=== PATIENT | female | born 1970 | race Caucasian/White ===

== ENCOUNTER 2016-10-08 11:22 | Emergency (ER) | payer BC ==
--- NOTE | 2016-10-08 13:53 | ED NURSING NOTES ---
Clinical Report - Nurses [facility] [address] [place] [address] 10/08/2016 11:26 Patient: ALBERTO RTEJO TRIAGE Triage time 11:54. Acuity: LEVEL 3. Chief Complaint: NAUSEA and VOMITING. --12:01 Lula Campbell R.N. 11:54 10/08/16. BP: 134/87. HR: 90. RR: 16. O2 saturation: 99%. Temp: 98.2 F. Pain level now: 12/06. --12:01 Lula Campbell R.N. Weight: 92.5 kg stated. Height/Length: 67 inches Per Patient. BMI: 32. --12:00 Lula Campbell R.N. Medications Sertraline HCl Oral. --11:57 Lula Campbell R.N. Allergies Codeine. --11:58 Lula Campbell R.N. History Arrived by private vehicle. Historian: patient. Accompanied by family. Primary physician ([facility] ( Pt went to [facility] yesterday and was diagnosed with strep throat. Given Percocet and PCN which she took when she got home around 4pm and has been throwing up ever since.). This started yesterday. She has had nausea and vomiting. Last oral intake by patient was yesterday. Treatment RENTAL CLERK TOOL AND EQUIPMENT: Recently seen in a clinic; seen for different problems; treatment- pain medication and antibiotic. PAST MEDICAL HX: Gallstones. Immunizations: up-to-date. The patient has had a hysterectomy. SURGERY HX: Had hysterectomy. SOCIAL HX: Never smoker. Occasional alcohol use. No drug use. No infectious disease exposure. SELF HARM ASSESSMENT: A self harm assessment was performed. The patient answered "no" to the question "Do you have thoughts of harming or killing yourself?". FALL RISK ASSESSMENT: Fall risk assessment completed. No fall risk identified. ABUSE ASSESSMENT: Abuse assessment: ("Yes") The patient was asked "Do you feel safe in your home?". --12:01 Lula Campbell R.N. ADDITIONAL SURGERIES: . Gallbladder Surgery. Kidney removal. Shoulder Surgery. --11:58 Lula Campbell R.N. Interventions ID band on patient. --12:01 Lula Campbell R.N. PHYSICAL ASSESSMENT Ambulatory to room. GENERAL / NEURO / PSYCH: Alert. Oriented X 4. Appears in pain and in distress. RESPIRATORY: Respirations not labored. GI / : The patient has had nausea. Abdomen soft. SKIN: Skin is warm and dry. --12:01 Lula Campbell R.N. NURSING PROGRESS NOTES Reassurance given. Patient ID band checked: patient confirmed. Instructions provided to collect clean catch urine and patient verbalized understanding. Clean catch urine collected with return of norma-colored urine; sample sent to lab. Specimen labeled in the presence of the patient. Patient identifiers checked. Call light placed in reach. Bed placed in lowest position. Brakes of bed on. Patient ready for evaluation- ED physician notified. --12:02 Lula Campbell R.N. 12:19 10/08/2016 Site #1 started via IV in the right antecubital space with an 18g angiocath, with aseptic technique and good blood return; one attempt. Blood drawn: rainbow set. Labeled in the presence of the patient and sent to the lab. Saline lock flushed with 10 mL saline. --12:19 Lula Campbell R.N. 13:39 10/08/2016 Started bag #1 1000 mL IV Fluids IV NS (Saline); bolus of 999 mL over 1 hour(s) via site #1 via IV pump. Allergies verified and confirmed 5 rights. IV patency established. IV site checked: no pain, redness, or swelling. IV flushed thoroughly pre- and post-medication administration. --13:39 uLla Campbell R.N. DISPOSITION / DISCHARGE 15:07 10/08/2016 Site #1 removed upon discharge. Catheter intact. Bandage applied. --15:17 Yossi Damon R.N. 15:17 10/08/16. Departure time: 1514. Condition at departure: improved and stable. No learning barriers present. Discharge instructions provided and reviewed with the patient and spouse. Reviewed medication(s) side effects, precautions, dosing and course information. Prescription(s) given to the patient. Patient verbalized understanding. Written instructions provided in Urdu. The patient was discharged by the physician. She was discharged home and accompanied by spouse. She left the Emergency Department ambulatory and via private vehicle. Spouse driving. --15:17 Yossi Damon R.N. 15:14 10/08/16. BP: 115/73. HR: 84. RR: 16. O2 saturation: 95% on room air. Temp: 98.2 F (oral). Pain level now 10/05. --15:17 Yossi Damon R.N. Locked/Released at 10/08/2016 19:36 by Lula Campbell R.N.
--- NOTE | 2016-10-08 13:53 | ED NURSING NOTES ---
Clinical Report - Nurses [facility] [address] [place] [address] 10/08/2016 11:26 Patient: ALBERTO TREJO TRIAGE Triage time 11:54. Acuity: LEVEL 3. Chief Complaint: NAUSEA and VOMITING. --12:01 Lula Campbell R.N. 11:54 10/08/16. BP: 134/87. HR: 90. RR: 16. O2 saturation: 99%. Temp: 98.2 F. Pain level now: 12/06. --12:01 Lula Campbell R.N. Weight: 92.5 kg stated. Height/Length: 67 inches Per Patient. BMI: 32. --12:00 Lula Campbell R.N. Medications Sertraline HCl Oral. --11:57 Lula Campbell R.N. Allergies Codeine. --11:58 Lula Campbell R.N. History Arrived by private vehicle. Historian: patient. Accompanied by family. Primary physician ([facility]). ( Pt went to [facility] yesterday and was diagnosed with strep throat. Given Percocet and PCN which she took when she got home around 4pm and has been throwing up ever since.). This started yesterday. She has had nausea and vomiting. Last oral intake by patient was yesterday. 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 PAST MEDICAL HX: Gallstones. Immunizations: up-to-date. The patient has had a hysterectomy. SURGERY HX: Had hysterectomy. SOCIAL HX: Never smoker. Occasional alcohol use. No drug use. No infectious disease exposure. SELF HARM ASSESSMENT: A self harm assessment was performed. The patient answered "no" to the question "Do you have thoughts of harming or killing yourself?". FALL RISK ASSESSMENT: Fall risk assessment completed. No fall risk identified. ABUSE ASSESSMENT: Abuse assessment: ("Yes") The patient was asked "Do you feel safe in your home?". --12:01 Lula Campbell R.N. ADDITIONAL SURGERIES: . Gallbladder Surgery. Kidney removal. Shoulder Surgery. --11:58 Lula Campbell R.N. Interventions ID band on patient. --12:01 Lula Campbell R.N. PHYSICAL ASSESSMENT Ambulatory to room. GENERAL / NEURO / PSYCH: Alert. Oriented X 4. Appears in pain and in distress. RESPIRATORY: Respirations not labored. GI / : The patient has had nausea. Abdomen soft. SKIN: Skin is warm and dry. --12:01 Lula Campbell R.N. NURSING PROGRESS NOTES Reassurance given. Patient ID band checked: patient confirmed. Instructions provided to collect clean catch urine and patient verbalized understanding. Clean catch urine collected with return of norma-colored urine; sample sent to lab. Specimen labeled in the presence of the patient. Patient identifiers checked. Call light placed in reach. Bed placed in lowest position. Brakes of bed on. Patient ready for evaluation- ED physician notified. --12:02 Lula Campbell R.N. 12:19 10/08/2016 Site #1 started via IV in the right antecubital space with an 18g angiocath, with aseptic technique and good blood return; one attempt. Blood drawn: rainbow set. Labeled in the presence of the patient and sent to the lab. Saline lock flushed with 10 mL saline. --12:19 Lula Campbell R.N. 13:39 10/08/2016 Started bag #1 1000 mL IV Fluids IV NS (Saline); bolus of 999 mL over 1 hour(s) via site #1 via IV pump. Allergies verified and confirmed 5 rights. IV patency established. IV site checked: no pain, redness, or swelling. IV flushed thoroughly pre- and post-medication administration. --13:39 Lula Campbell R.N. DISPOSITION / DISCHARGE 15:07 10/08/2016 Site #1 removed upon discharge. Catheter intact. Bandage applied. --15:17 Yossi Damon R.N. 15:17 10/08/16. Departure time: 1514. Condition at departure: improved and stable. No learning barriers present. Discharge instructions provided and reviewed with the patient and spouse. Reviewed medication(s) side effects, precautions, dosing and course information. Prescription(s) given to the patient. Patient verbalized understanding. Written instructions provided in Yoruba. The patient was discharged by the physician. She was discharged home and accompanied by spouse. She left the Emergency Department ambulatory and via private vehicle. Spouse driving. --15:17 Yossi Damon R.N. 15:14 10/08/16. BP: 115/73. HR: 84. RR: 16. O2 saturation: 95% on room air. Temp: 98.2 F (oral). Pain level now 10/05. --15:17 Yossi Damon R.N. Locked/Released at 10/08/2016 19:36 by Lula Campbell R.N.
--- NOTE | 2016-10-08 13:53 | ED ORDER SUMMARY ---
..... Patient: ZENOBIA TREJO OrderSheet [facility] VisitID: [id number] [address] [place] [address] 46y, F Registration Date/Time: 10/08/2016 ORDER SHEET Weight: 92.5 kg (stated) Allergies: Codeine GENERAL ORDERS: CBC w Diff Urgent (12:45 10/08/2016 DDean R.N. per protocol) (Ack 13:15 PWeiler ER Tech1) (14:10 KWilliams R.N.) BMP Urgent (12:45 10/08/2016 DDean R.N. per protocol) (Ack 13:15 PWeiler ER Tech1) (14:10 KWilliams R.N.) MEDICATION ORDERS: IV FLUIDS: IV Saline Lock (12:45 10/08/2016 DDean R.N. per protocol) (Ack 12:46 DDean R.N.) Zofran IV 4 mg (NOW) (12:45 10/08/2016 DDean R.N. per protocol) (Ack 12:45 DDean R.N.) IV NS : initial bolus 1000 mL (1000 mL/hr), then none - (NOW) (13:06 10/08/2016 HBivens A.R.N.P.) (13:39 JBest R.N.) ORDER SHEET NOTES: [Electronically signed by Zenboia QuintanillaR.N.PBeka (15:46 10/08/2016)] [Electronically signed by Lula Campbell R.N. (19:36 10/08/2016)] [Electronically locked/signed by Lula Campbell R.N. (19:36 10/08/2016)]
--- NOTE | 2016-10-08 13:53 | ED ORDER SUMMARY ---
..... Patient: ZENOBIA TREJO OrderSheet [facility] VisitID: [id number] [address] [place] [address] 46y, F Registration Date/Time: 10/08/2016 ORDER SHEET Weight: 92.5 kg (stated) Allergies: Codeine GENERAL ORDERS: CBC w Diff Urgent (12:45 10/08/2016 DDean R.N. per protocol) (Ack 13:15 PWeiler ER Tech1) (14:10 KWilliams R.N.) BMP Urgent (12:45 10/08/2016 DDean R.N. per protocol) (Ack 13:15 PWeiler ER Tech1) (14:10 KWilliams R.N.) MEDICATION ORDERS: IV FLUIDS: IV Saline Lock (12:45 10/08/2016 DDean R.N. per protocol) (Ack 12:46 DDean R.N.) Zofran IV 4 mg (NOW) (12:45 10/08/2016 DDean R.N. per protocol) (Ack 12:45 DDean R.N.) IV NS : initial bolus 1000 mL (1000 mL/hr), then none - (NOW) (13:06 10/08/2016 HBivens A.R.N.P.) (13:39 JBest R.N.) ORDER SHEET NOTES: [Electronically signed by Zenobia QuintanillaR.N.PBeka (15:46 10/08/2016)] [Electronically signed by Lula Campbell R.N. (19:36 10/08/2016)] [Electronically locked/signed by Lula Campbell R.N. (19:36 10/08/2016)]
--- NOTE | 2016-10-08 13:53 | ED CLINICAL REPORT ---
Clinical Report - Physicians/Mid Levels [facility] [address] [place] [address] 10/08/2016 11:26 Patient: ZENOBIA TREJO Time Seen: 13:03; initial patient contact, initial documentation, patient care assumed. Arrived- By private vehicle. Historian- patient. HISTORY OF PRESENT ILLNESS Chief Complaint: VOMITING. This started yesterday and is still present. It was abrupt in onset. No recent travel. She has had nausea and vomiting. No diarrhea, black stools, bloody stools, abdominal pain or constipation. No flank pain, history of possible bad food exposure, known contact with a sick individual or change in routine. Has recently been on antibiotics but not recently been camping. The illness is described as moderate. (thinks meds made her sick to her stomach). Similar symptoms previously: None. Recent medical care: The patient was seen recently in a clinic. ( went to clinic yesterday, dx with strep throat, rx pcn and percocet). REVIEW OF SYSTEMS No fever, difficulty with urination, dark urine, cough or chest pain. No difficulty breathing. Denies current . She has had a sore throat. All systems otherwise negative, except as recorded above. PAST HISTORY See nurses notes. Gallstones. ADDITIONAL SURGERIES: . Gallbladder Surgery. Kidney removal. Shoulder Surgery. --11:58 Lula Campbell R.N. Surgeries: Had hysterectomy. SOCIAL HISTORY Never smoker. No alcohol use or drug use. No recent travel. Is a local resident. FAMILY HISTORY Negative. ADDITIONAL NOTES The nursing notes have been reviewed with agreement regarding the chief complaint, HPI, ROS, PMH and patient medications and allergies. PHYSICAL EXAM Vital Signs: 10/08/2016 11:54 BP: 134/87. HR: 90. RR: 16. O2 saturation: 99%. Temp: 98.2 F. Pain level now: 9/10. Have been reviewed as normal and appear to be correct. Appearance: Alert. Oriented X3. No acute distress. Eyes: Pupils equal, round and reactive to light. Eyes normal inspection. ENT: Ears normal. Nose normal. Pharynx abnormal. Moderate generalized pharyngeal erythema with right tonsillar swelling and exudate and left tonsillar swelling and exudate (+1 hypertrophy). No right tonsillar abscess, right peritonsillitis, left tonsillar abscess or left peritonsillitis. Tonsillar exudate present. Neck: Normal inspection. Neck supple. CVS: Normal heart rate and rhythm. Heart sounds normal. Pulses normal. Respiratory: No respiratory distress. Breath sounds normal. Abdomen: Soft and nontender. Bowel sounds normal. No organomegaly. No mass. Back: Normal inspection. Skin: Skin warm and dry. Normal skin color. No rash. Normal skin turgor. Extremities: Extremities exhibit normal ROM. No lower extremity edema. Neuro: Oriented X 3. No motor deficit. No sensory deficit. LABS, X-RAYS, AND EKG Laboratory Tests: CBC w Diff: (SEPIDEH: 10/08/2016 12:15) ( [facility] 10/08/2016 12:54) Final results Test Result Flag Units (Reference) WHITE BLOOD COUNT 14.3 H K/uL (4.5-11.5) RED BLOOD COUNT 5.19 M/uL (4.00-5.20) HEMOGLOBIN 14.9 gm/dL (12.0-16.0) HEMATOCRIT 44.8 % (36.0-46.0) MEAN CELL VOLUME 86 fL (80-100) MEAN CORPUSCULAR HGB 29 pg (26-34) MEAN CORPUSCULAR HGB CONC 33 g/dL (31-37) RED CELL DISTRIBUTION WIDTH 13.9 % (11.6-14.8) PLATELET COUNT 222 K/uL (150-400) NEUTROPHIL % 88.0 H % (50-75) LYMPH % 5.7 L % (25-40) MONO % 6.2 % (3-14) EOSINOPHIL % 0.1 % (0-4) BASOPHIL % 0 % (0-2) BMP: (SEPDIEH: 10/08/2016 12:15) ( Nvg[facility]cvd 10/08/2016 12:54) Final results Test Result Flag Units (Reference) GLUCOSE 160 H mg/dL (70-110) BUN 11 mg/dL (7-18) CREATININE 1.4 H mg/dL (0.6-1.3) Estimated GFR 43.42 mL/min Estimated GFR- 52.62 mL/min Note: Persistent reduction over 3 months in eGFR<60 mL/min/1.73 m2 defines CKD. Patients with eGFR values>=60 mL/min/1.73 m2 may also have CKD if evidence ofpersistent proteinuria. Additional information may be foundat www.kidney.org. SODIUM 135 L mmol/L (136-145) POTASSIUM 4.0 mmol/L (3.5-5.1) CHLORIDE 96 L mmol/L (98-107) CARBON DIOXIDE 28 mmol/L (21-32) CALCIUM 9.7 mg/dL (8.5-10.1) . PROGRESS AND PROCEDURES Course of Care: called back into room at nj by spouse, who wanted to ask more qtns re dc plan, all qtns answered to best of my ability. 10/08/2016 15:14 BP: 115/73. HR: 84. RR: 16. O2 saturation: 95%. Temp: 98.2 F. Vital Signs: have been reviewed as normal and appear to be correct. Patient counseled in person regarding the patient's stable condition, test results and diagnosis. Differential Diagnosis: I considered gastritis, peptic ulcer disease, gastroesophageal reflux disease, gastroparesis, Crohn's disease, ulcerative colitis, small bowel obstruction, colonic obstruction, colon cancer, gastroenteritis, cholecystitis, pancreatitis, viral syndrome, enterocolitis, hepatitis, sepsis, drugs, hyperthyroidism, hyperparathyroidism and as a possible cause of vomiting in this patient. This is a partial list of diagnoses considered. (med reaction). Above considerations are based on history, physical exam and laboratory data. Differential diagnosis was discussed with patient. Disposition: Discharged home in good and improved condition (13:53). Condition: good and stable. CLINICAL IMPRESSION Intractable vomiting with nausea. No dehydration or volume depletion. Not bilious. Acute exudative streptococcal tonsillitis INSTRUCTIONS Take clear liquids only (frequent sips) for the next 24 hours until better. May continue medications with sips only. Advance diet as tolerated. Avoid. (stop other antibiotics, as discussed). Warnings: GENERAL WARNINGS: Return or contact your physician immediately if your condition worsens or changes unexpectedly, if not improving as expected, or if other problems arise. SPECIFICALLY, return if you develop pain in the abdomen or pelvis, fever, the inability to keep fluids down, blood in vomitus, blood in diarrhea, fainting or lightheadedness. Prescription Medications: Zofran 4 mg: Take 1 orally every six hours as needed for nausea/vomiting. Dispense ten (10). No refills. Substitution is permissible. Amoxicillin 500 mg tablets: Take 1 orally every 8 hours for 10 days. Dispense thirty (30). No refills. Follow-up: Follow up with your doctor in about three days even if well. Call for an appointment. Summary of care provided to patient. Understanding of the discharge instructions verbalized by patient. (Electronically signed by Zenobia Quintanilla A.R.N.P. 10/08/2016 15:46)
--- NOTE | 2016-10-08 19:37 | ED MED RECONCILIATION SUMMARY ---
Patient: MAYA, ZENOBIA Tammy Medication Reconciliation Report [facility] VisitID: [id number] [address] [place] [address] 46y, F Registration Date/Time: 10/08/2016 Weight: 92.5 kg Height/Length: 67 in. BMI: 32.0 ALLERGIES: Codeine The patient's Home Medications are listed below: THE FOLLOWING MEDICATIONS NEED TO BE RECONCILED: Sertraline HCl Oral The source(s) of the original Home Medication information: Not obtained. The following Medications were given to the patient in the Emergency Department: IV NS IV Fluids bolus 999 mL over 1 hour(s), administered: 10/08/2016 1:39:00 PM The following Medications were prescribed to the patient: Zofran 4 mg: Take 1 orally every six hours as needed for nausea/vomiting. Dispense ten (10). No refills. Substitution is permissible. -- Zenobia Quintanilla A.R.N.P. Amoxicillin 500 mg tablets: Take 1 orally every 8 hours for 10 days. Dispense thirty (30). No refills. -- Zenobia Quintanilla A.R.N.P.
--- NOTE | 2016-10-08 19:37 | ED MED RECONCILIATION SUMMARY ---
Patient: MAYA, ZENOBIA Tammy Medication Reconciliation Report [facility] VisitID: [id number] [address] [place] [address] 46y, F Registration Date/Time: 10/08/2016 Weight: 92.5 kg Height/Length: 67 in. BMI: 32.0 ALLERGIES: Codeine The patient's Home Medications are listed below: THE FOLLOWING MEDICATIONS NEED TO BE RECONCILED: Sertraline HCl Oral The source(s) of the original Home Medication information: Not obtained. The following Medications were given to the patient in the Emergency Department: IV NS IV Fluids bolus 999 mL over 1 hour(s), administered: 10/08/2016 1:39:00 PM The following Medications were prescribed to the patient: Zofran 4 mg: Take 1 orally every six hours as needed for nausea/vomiting. Dispense ten (10). No refills. Substitution is permissible. -- Zenobia Quintanilla A.R.N.P. Amoxicillin 500 mg tablets: Take 1 orally every 8 hours for 10 days. Dispense thirty (30). No refills. -- Zenobia Quintanilla A.R.N.P.
--- NOTE | 2016-10-08 19:37 | ED MAR SUMMARY ---
..... Medication Administration Record [facility] [address] [place] [address] Patient: ALBERTO TREJO Visit ID: [id number] 46y, F Weight: 92.5 kg Height/Length: 67 in BMI: 32 ALLERGIES: Codeine Start 13:39 10/08/2016 Lula Campbell R.N. Medication Administered: IV NS (SALINE), Dose: IV Fluids, Bolus: 999 mL over 1 hour(s), Dispensed: 1000 mL bag, Site: #1 right AC. Medication Ordered: IV NS : initial bolus 1000 mL (1000 mL/hr), then none - (NOW).
--- NOTE | 2016-10-08 19:37 | ED MAR SUMMARY ---
..... Medication Administration Record [facility] [address] [place] [address] Patient: ALBERTO TREJO Visit ID: [id number] 46y, F Weight: 92.5 kg Height/Length: 67 in BMI: 32 ALLERGIES: Codeine Start 13:39 10/08/2016 Lula Campbell R.N. Medication Administered: IV NS (SALINE), Dose: IV Fluids, Bolus: 999 mL over 1 hour(s), Dispensed: 1000 mL bag, Site: #1 right AC. Medication Ordered: IV NS : initial bolus 1000 mL (1000 mL/hr), then none - (NOW).
--- NOTE | 2016-10-08 19:37 | ED DISCHARGE INSTRUCTIONS ---
Patient: ZENOBIA TREJO General Instructions [facility] VisitID: [id number] [address] [place] [address] 46y, F Registration Date/Time: 10/08/2016 Intractable vomiting with nausea. No dehydration or volume depletion. Not bilious. Acute exudative streptococcal tonsillitis INSTRUCTIONS Take clear liquids only (frequent sips) for the next 24 hours until better. May continue medications with sips only. Advance diet as tolerated. Avoid. (stop other antibiotics, as discussed). Warnings: GENERAL WARNINGS: Return or contact your physician immediately if your condition worsens or changes unexpectedly, if not improving as expected, or if other problems arise. SPECIFICALLY, return if you develop pain in the abdomen or pelvis, fever, the inability to keep fluids down, blood in vomitus, blood in diarrhea, fainting or lightheadedness. Prescription Medications: Zofran 4 mg: Take 1 orally every six hours as needed for nausea/vomiting. Dispense ten (10). No refills. Substitution is permissible. Amoxicillin 500 mg tablets: Take 1 orally every 8 hours for 10 days. Dispense thirty (30). No refills. Follow-up: Follow up with your doctor in about three days even if well. Call for an appointment. Summary of care provided to patient. Understanding of the discharge instructions verbalized by patient. ADDITIONAL INFORMATION Vomiting [6Yr-Adult] Vomiting is a common symptom that may be due to different causes. These include gastroenteritis ("stomach flu"), food poisoning and gastritis. There are other more serious causes of vomiting which may be hard to diagnose early in the illness. Therefore, it is important to watch for the warning signs listed below. The main danger from repeated vomiting is dehydration. This is due to excess loss of water and minerals from the body. When this occurs, body fluids must be replaced. Home Care: If symptoms are severe, rest at home for the next 24 hours. You may use acetaminophen (Tylenol) or ibuprofen (Motrin, Advil) to control fever, unless another medicine was prescribed. [NOTE : If you have chronic liver or kidney disease or ever had a stomach ulcer or GI bleeding, talk with your doctor before using these medicines.] (Aspirin should never be used in anyone under 18 years of age who is ill with a fever. It may cause severe liver damage.) Avoid tobacco and alcohol use, which may worsen your symptoms. If medicines for vomiting were prescribed, take as directed. Once vomiting stops, then follow these guidelines: During The First 12-24 Hours follow the diet below: FRUIT JUICES: Apple, grape juice, clear fruit drinks, and electrolyte replacement drinks. BEVERAGES: Soft drinks without caffeine; mineral water (plain or flavored), decaffeinated tea and coffee. SOUPS: Clear broth, consomm and bouillon DESSERTS: Plain gelatin, popsicles and fruit juice bars. As you feel better, you may add 6-8 ounces of yogurt per day. During The Next 24 Hours you may add the following to the above: Hot cereal, plain toast, bread, rolls, crackers Plain noodles, rice, mashed potatoes, chicken noodle or rice soup Unsweetened canned fruit (avoid pineapple), bananas Limit caffeine and chocolate. No spices or seasonings except salt. During The Next 24 Hours Gradually resume a normal diet, as you feel better and your symptoms lessen. Follow Up with your doctor as advised if you are not improving over the next 2-3 days. Get Prompt Medical Attention if any of the following occur: Constant right-sided lower abdominal pain or increasing general abdominal pain Continued vomiting (unable to keep liquids down) for 24 hours Frequent diarrhea (more than 5 times a day); blood (red or black color) or mucus in diarrhea Reduced urine output or extreme thirst Weakness, dizziness or fainting Unusually drowsy or confused Fever of 100.4F (38C) oral or higher, not better with fever medication Yellow color of the eyes or skin Pharyngitis: Strep [Presumed] Your illness has the signs of a strep throat infection. Strep throat is a contagious illness. It is spread by coughing, kissing or by touching others after touching your mouth or nose. Symptoms include throat pain worse with swallowing, aching all over, headache and fever. You will be treated with an antibiotic, which should make you start to feel better within 1-2 days. Home Care: Rest at home and drink plenty of fluids to avoid dehydration. No school or work for the first two days on antibiotics. You will not be contagious after this time, and if you are feeling better, you can return to school or work. Take your antibiotics for a full 10 days, even if you feel better after the first few days of treatment. This is very important to prevent complications from the strep infection (such as heart or kidney disease). Children: Use acetaminophen (Tylenol) for fever, fussiness or discomfort. In infants over six months of age, you may use ibuprofen (Children's Motrin) instead of Tylenol. [NOTE: If your child has chronic liver or kidney disease or ever had a stomach ulcer or GI bleeding, talk with your doctor before using these medicines.] (Aspirin should never be used in anyone under 18 years of age who is ill with a fever. It may cause severe liver damage.) Adults: You may use acetaminophen (Tylenol) or ibuprofen (Motrin, Advil) to control pain or fever, unless another medicine was prescribed for this. [NOTE: If you have chronic liver or kidney disease or ever had a stomach ulcer or GI bleeding, talk with your doctor before using these medicines.] Throat lozenges or sprays (Chloraseptic and others) will reduce pain. Gargling with warm salt water will also reduce throat pain. Dissolve 1/2 teaspoon of salt in 1 glass of warm water. This is especially useful just before meals. Follow Up with your doctor or as directed by our staff if you are not improving over the next week. Get Prompt Medical Attention if any of the following occur: Fever over 100.5F (38.0C) oral, or over 101.5F (38.6C) rectal for more than three days New or worsening ear pain, sinus pain or headache Painful lumps in the back of your neck Unable to swallow liquids or open your mouth wide due to throat pain Trouble breathing or noisy breathing Muffled voice New rash Clear Liquid Diet Clear liquids are any liquid that you can see through as well as those that are very easy to digest. This is used while the body is recovering from irritation or infection of the stomach or intestinal tract. It may also be used before special procedures or surgery. This diet is to be used no more than three days. You may include the following items. Adults Adults should drink a total of 23 quarts of liquid per day. It may be easier to drink small frequent servings rather than a few large ones. Liquids can include: Fruit juices.Strained orange juice or lemonade (no pulp), apple, grape and cranberry juice, clear fruit drinks, sports drinks Beverages.Sport drinks, sodas, mineral water (plain or flavored), tea, black coffee, liquid gelatin (add twice the recommended amount of water) Soups.Clear broth, consomm, bouillon Desserts.Plain gelatin, popsicles, fruit juice bars Children Over 2 years old The following liquids are acceptable for children over age 2: Fruit juices.Strained orange juice or lemonade (no pulp), apple, grape and cranberry juice, clear fruit drinks Beverages. Sports drinks, sodas, mineral water (plain or flavored), tea, liquid gelatin (add twice the recommended amount of water) Soups. Clear broth, consomm, bouillon Desserts. Plain gelatin, popsicles, fruit juice bars Children under 2 years old Oral rehydration fluids such are available at drug stores and most grocery stores without a prescription. Weber Diet A bland diet is used for patients with an upset stomach. It consists of foods that are mild and easy to digest. It is better to eat small frequent meals rather than three large meals a day. BEVERAGES OK: Fruit juices, non-caffeinated teas and coffee, non-carbonated lassiter AVOID: Carbonated beverage, caffeinated tea and coffee, all alcoholic beverages BREAD OK: Refined white, wheat or rye bread, [place] or soda crackers, [place] toast, plain rolls, bagels AVOID: Whole-grain bread CEREAL OK: Refined cereals: cooked or ready to eat AVOID: Whole grain cereals and granola, or those containing bran, seeds or nuts DESSERTS OK: Peanut butter and all others except those to "avoid" AVOID: Chocolate, cocoa, coconut, popcorn, nuts, seeds, jam, marmalade FRUITS OK: Canned, cooked, frozen or fresh fruits without seeds or tough skin AVOID: Olives, skin and seeds of fruit MEATS OK: All fresh or preserved meat, fish and fowl AVOID: Any that are prepared with those spices to "avoid" CHEESE & EGGS OK: Eggs, cottage cheese, cream cheese, other cheeses AVOID: All cheeses made with those spices to "avoid" POTATOES & PASTA OK: Potato, rice, macaroni, noodles, spaghetti AVOID: None SOUPS OK: All soups without heavy seasoning AVOID: Soups made with those spices to "avoid" VEGETABLES OK: Canned, cooked, fresh or frozen mildly flavored vegetables without seeds, skins or coarse fiber AVOID: Vegetables prepared with those spices to "avoid"; skin and seeds of vegetables and those with coarse fiber SPICES OK: Salt, lemon and [place] juice, vinegar, all extracts, bogdan, cinnamon, thyme, mace, allspice, paprika AVOID: [place] powder, cloves, pepper, seed spices, garlic, gravy pickles, highly seasoned salad dressings Clear Liquid Diet Clear liquids are any liquid that you can see through as well as those that are very easy to digest. This is used while the body is recovering from irritation or infection of the stomach or intestinal tract. It may also be used before special procedures or surgery. This diet is to be used no more than three days. You may include the following items. Adults Adults should drink a total of 23 quarts of liquid per day. It may be easier to drink small frequent servings rather than a few large ones. Liquids can include: Fruit juices.Strained orange juice or lemonade (no pulp), apple, grape and cranberry juice, clear fruit drinks, sports drinks Beverages.Sport drinks, sodas, mineral water (plain or flavored), tea, black coffee, liquid gelatin (add twice the recommended amount of water) Soups.Clear broth, consomm, bouillon Desserts.Plain gelatin, popsicles, fruit juice bars Children Over 2 years old The following liquids are acceptable for children over age 2: Fruit juices.Strained orange juice or lemonade (no pulp), apple, grape and cranberry juice, clear fruit drinks Beverages. Sports drinks, sodas, mineral water (plain or flavored), tea, liquid gelatin (add twice the recommended amount of water) Soups. Clear broth, consomm, bouillon Desserts. Plain gelatin, popsicles, fruit juice bars Children under 2 years old Oral rehydration fluids such are available at drug stores and most grocery stores without a prescription. Ondansetron Hydrochloride Oral tablet What is this medicine? ONDANSETRON (on SANTI se torres) is used to treat nausea and vomiting caused by chemotherapy. It is also used to prevent or treat nausea and vomiting after surgery. How should I use this medicine? Take this medicine by mouth with a glass of water. Follow the directions on your prescription label. Take your doses at regular intervals. Do not take your medicine more often than directed. Talk to your raw shellfish preparer regarding the use of this medicine in children. Special care may be needed. What side effects may I notice from receiving this medicine? Side effects that you should report to your doctor or health career resource technician as soon as possible: allergic reactions like skin rash, itching or hives, swelling of the face, lips or tongue breathing problems dizziness fast or irregular heartbeat feeling faint or lightheaded, falls fever and chills swelling of the hands or feet tightness in the chest Side effects that usually do not require medical attention (report to your doctor or health career resource technician if they continue or are bothersome): constipation or diarrhea headache What may interact with this medicine? Do not take this medicine with any of the following medications: -apomorphine -cisapride -dofetilide -dronedarone -pimozide -thioridazine -ziprasidone This medicine may also interact with the following medications: -carbamazepine -phenytoin -rifampicin -tramadol -other medicines that prolong the QT interval (cause an abnormal heart rhythm) What if I miss a dose? If you miss a dose, take it as soon as you can. If it is almost time for your next dose, take only that dose. Do not take double or extra doses. Where should I keep my medicine? Keep out of the reach of children. Store between 2 and 30 degrees C (36 and 86 degrees F). Throw away any unused medicine after the expiration date. What should I tell my health care provider before I take this medicine? They need to know if you have any of these conditions: heart disease history of irregular heartbeat liver disease low levels of magnesium or potassium in the blood an unusual or allergic reaction to ondansetron, granisetron, other medicines, foods, dyes, or preservatives or trying to get breast-feeding What should I watch for while using this medicine? Check with your doctor or health career resource technician right away if you have any sign of an allergic reaction. Amoxicillin Trihydrate Oral tablet What is this medicine? AMOXICILLIN (a mox i TESSY in) is a penicillin antibiotic. It is used to treat certain kinds of bacterial infections. It will not work for colds, flu, or other viral infections. How should I use this medicine? Take this medicine by mouth with a glass of water. Follow the directions on your prescription label. You may take this medicine with food or on an empty stomach. Take your medicine at regular intervals. Do not take your medicine more often than directed. Take all of your medicine as directed even if you think your are better. Do not skip doses or stop your medicine early. Talk to your raw shellfish preparer regarding the use of this medicine in children. While this drug may be prescribed for selected conditions, precautions do apply. What side effects may I notice from receiving this medicine? Side effects that you should report to your doctor or health career resource technician as soon as possible: allergic reactions like skin rash, itching or hives, swelling of the face, lips, or tongue breathing problems dark urine redness, blistering, peeling or loosening of the skin, including inside the mouth seizures severe or watery diarrhea trouble passing urine or change in the amount of urine unusual bleeding or bruising unusually weak or tired yellowing of the eyes or skin Side effects that usually do not require medical attention (report to your doctor or health career resource technician if they continue or are bothersome): dizziness headache stomach upset trouble sleeping What may interact with this medicine? amiloride control pills chloramphenicol macrolides probenecid sulfonamides tetracyclines What if I miss a dose? If you miss a dose, take it as soon as you can. If it is almost time for your next dose, take only that dose. Do not take double or extra doses. Where should I keep my medicine? Keep out of the reach of children. Store between 68 and 77 degrees F (20 and 25 degrees C). Keep bottle closed tightly. Throw away any unused medicine after the expiration date. What should I tell my health care provider before I take this medicine? They need to know if you have any of these conditions: asthma kidney disease an unusual or allergic reaction to amoxicillin, other penicillins, cephalosporin antibiotics, other medicines, foods, dyes, or preservatives or trying to get breast-feeding What should I watch for while using this medicine? Tell your doctor or health career resource technician if your symptoms do not improve in 2 or 3 days. Take all of the doses of your medicine as directed. Do not skip doses or stop your medicine early. If you are diabetic, you may get a false positive result for sugar in your urine with certain brands of urine tests. Check with your doctor. Do not treat diarrhea with [id number] products. Contact your doctor if you have diarrhea that lasts more than 2 days or if the diarrhea is severe and watery. You have been given the following additional information: Vomiting (6Y-Adult) Pharyngitis, Strep (Presumed) Diet, Clear Liquid Diet, Weber (Adult) Diet, Clear Liquid Ondansetron Hydrochloride Oral tablet Amoxicillin Trihydrate Oral tablet (Electronically signed by Zenobia Quintanilla [email or web address] 10/08/2016 15:46)
== END 2016-10-08 15:14 | disposition home or self-care (01) ==
LOC: ED SRH 11:22
DX: R11.2 Nausea with vomiting, unspecified (principal); J03.00 Acute streptococcal tonsillitis, unspecified
CPT/HCPCS: 90047; 95059